=== PATIENT | male | born 1980 | race Caucasian/White ===

== ENCOUNTER 2021-05-06 08:13 | Outpatient (CLI) | payer OTHER | END 2021-05-06 08:16 | disposition home or self-care (01) | LOC: SONOGRAMA 08:13 | PROVIDERS: ATTEND General Practice | DX: E03.9 Hypothyroidism, unspecified (principal) ==

== ENCOUNTER 2022-08-01 13:07 | Outpatient (CLI) | payer OTHER | END 2022-08-01 13:09 | disposition home or self-care (01) | LOC: SONOGRAMA 13:07 | DX: E04.2 Nontoxic multinodular goiter (principal) ==